=== PATIENT | female | born 1925 | race Caucasian/White ===

== ENCOUNTER → 2017-07-06 | Day surgery (SDC) | payer MEDICARE, BC ==
[~2017-07-06] MED LIST: BUPIVACAINE/EPINEPHRINE 0.5% PF 10 ML VIAL ONE; BUPIVACAINE/EPINEPHRINE 0.5% PF 30 ML VIAL ONE; LACTATED RINGER'S 1000 ML INJ 1,000 ML ONE; LIDOCAINE 1%/EPINEPHrine 1:100,000 SOLN 30 ML VIAL ONE; PROPOFOL 500 MG/50 ML BTL IV ONE; ceFAZolin 2 GM PREMIX 50 ML ONE
--- NOTE | 2017-07-07 07:53 | MP ---
cc: ADAM MARTÍNEZ MD DATE OF SURGERY July 06, 2017 PREOPERATIVE DIAGNOSIS T10 and T11 compression fractures. POSTOPERATIVE DIAGNOSIS T10 and T11 compression fractures. PROCEDURE T10 and T11 kyphoplasty with placement of bone cement spacer. SURGEON Dr. Adam Martínez ENTRY SPECIALIST None. ANESTHESIA TYPE TIVA. ESTIMATED BLOOD LOSS Minimal. SPECIMENS None. COMPLICATIONS None. INDICATIONS FOR PROCEDURE The patient is an 89-year-old female who presented to my clinic approximately three months after a fall with persistent debilitating back pain. The patient had an MRI on the week prior to presentation which demonstrated subacute compression fractures that had not healed with significant bony edema at both T10 and T11. The risks, benefits and alternatives were discussed with the patient, the risks including but not limited to risk of anesthesia, infection, adjacent level compression fractures, persistent or worsening back pain, extravasation of cement, neurologic injury, and other unforeseen complications were all discussed with the patient and her son. They did elect to proceed with the above-mentioned procedure. DESCRIPTION OF THE OPERATIVE PROCEDURE The patient was brought to the operating room and given limited sedation. The patient was carefully rolled to a prone position on a radiolucent table with all bony prominences well padded. The back was scrubbed with alcohol followed by Hibiclens, followed by Chloraprep and draped sterilely. Antibiotics were given within 1 hour of incision. A time-out was done to identify the correct patient, site and procedure to be performed. AP and lateral fluoroscopic images were used to identify the proper levels. These were compared to preoperative studies. Skin markings were made. Local anesthesia was utilized with a combination of 1% lidocaine plain and 0.25% Marcaine with epinephrine. We started at the cephalad level, T10. A single balloon approach was utilized at this level from the left side. A small awl was placed through the subcutaneous tissue to the pedicle and into the vertebral body at an oblique angle. This was followed by placement of a balloon centrally. The balloon was elevated. We then moved to the second level, T11. Local anesthesia was utilized. A double balloon approach was utilized from the left side first. A small awl was placed through the subcutaneous tissue to the pedicle and into the vertebral body at an oblique angle. This was followed by placement of the balloon. The balloon was elevated. The same procedure was repeated from the right side at T11. On the back table methyl methacrylate was mixed. After approximately 11 minutes the cement was injected into each level. Once the cement had hardened the tubes were removed. The wounds were irrigated and anesthetized and closed with 4-0 Vicryl followed by Dermabond. Intraoperative x-rays were obtained. The patient was awakened and taken to the recovery room in satisfactory condition. FINDINGS T10 and T11 compression deformities. MD DANIEL Baca/SSB /5:32 PM /7:36 AM
== END | disposition home or self-care (01) ==
LOC: ESDC 13:09
PROVIDERS: ATTEND Orthopaedic Surgery Orthopaedic Surgery of the Spine
DX: S22.070A Wedge compression fracture of T9-T10 vertebra, initial encounter for closed fracture (principal); S22.080A Wedge compression fracture of T11-T12 vertebra, initial encounter for closed fracture
CPT/HCPCS: 01936; 22513; 22515; 72070; J0690; J3010; J7120